=== PATIENT | male | born 1950 | race Caucasian/White ===

== ENCOUNTER 2017-06-04 05:51 | Day surgery (SDC) | payer MEDICARE ==
[~2017-06-04 05:51] MED LIST: AMOXIL400 MG/5 M PO; CEPHALEXIN500 MG PO; DUONEB IN; IPRATROPIU0.5 MG/3 M NEB; LASIX 40 MG40 MG/TAB PO; LEVAQUIN750 MG PO; MEDDOSEPAK PO; NEBULIZE1; NIACIN500 M2 PO; NORCO1 TA1 PO; PREDNISONE10 MG PO; PREDNISONE20 MG PO; PREDNISONE50 MG PO; PROAIR HFA IN; ROBITUSSIN AC10 ML PO; RYBIX ODT50 MG PO; SERTRALINE HCL50 MG PO; TRAMADOL HCL50 MG PO; TRAZODONE50 MG PO; VENTOLIN H108 MCG/AC IN; VENTOLIN HF1 IN; VITAMIN D1000 UNI1 PO; VITAMIN D3400 UNI2 PO
[2017-06-04 08:44] VITALS: BP 114/63
== END 2017-06-04 09:10 | disposition home or self-care (01) ==
LOC: ENDO 05:51
PROVIDERS: ATTEND Surgery
PROC: 0DBH8ZX Excision of Cecum, Via Natural or Artificial Opening Endoscopic, Diagnostic (ICD-10-PCS; principal; 2017-06-04)
PROC: 0DBN8ZX Excision of Sigmoid Colon, Via Natural or Artificial Opening Endoscopic, Diagnostic (ICD-10-PCS; 2017-06-04)
PROC: 0DBM8ZX Excision of Descending Colon, Via Natural or Artificial Opening Endoscopic, Diagnostic (ICD-10-PCS; 2017-06-04)
PROC: 0DBL8ZX Excision of Transverse Colon, Via Natural or Artificial Opening Endoscopic, Diagnostic (ICD-10-PCS; 2017-06-04)
DX: Z12.11 Encounter for screening for malignant neoplasm of colon (principal); D12.4 Benign neoplasm of descending colon; D12.3 Benign neoplasm of transverse colon; D12.5 Benign neoplasm of sigmoid colon; K62.1 Rectal polyp

== ENCOUNTER 2018-12-08 12:45 | Inpatient (IN) | payer MEDICARE ==
[~2018-12-08] VITALS: Ht 167.6 cm; Wt 119.0 kg
[2018-12-08 13:45] LABS: HEMATOCRIT 47.9 % (39.0-50.0); MEAN CELL VOLUME 92.3 fL CALC (80.0-100.0); MEAN CORPUSCULAR HGB 28.9 pG CALC (26.0-32.0); MEAN CORPUSCULAR HGB CONC 31.3 g/L CALC (32.0-36.0); NEUT# 6.93 thou/uL (1.82-7.42); RED BLOOD COUNT 5.19 mill/uL (4.70-6.10); RED CELL DISTRI WIDTH 14.8 % (11.5-15.5)
--- NOTE | 2018-12-08 13:45 | NUR ---
IN TO [id number] SELF TO Pt, P.O.C. DISCUSSED /c FULL UNDERSTANDING RETURNED.
[2018-12-08 13:47] LABS: ALKALINE PHOSPHATASE 91 u/l (38-126); ANION GAP 13 (6-22 (CALC)); BILIRUBIN, TOTAL 0.4 mg/dL (0.0-1.4); BUN 14 mg/dL (8-23); BUN/CREATININE RATIO 17 (12-20 (CALC)); CARBON DIOXIDE 27 mmol/l (22-30); CHLORIDE 102 mmol/l (95-108); CREATININE 0.8 mg/dL (0.7-1.3); GFR > 60 ML/MIN (>=60 (CALC)); GFR FOR AFR.AMER. > 60 ML/MIN (>=60 (CALC)); POTASSIUM 4.3 mmol/l (3.5-5.1); SGOT/AST 22 u/l (19-48); SODIUM 138 mmol/l (137-146); TOTAL PROTEIN 6.8 g/dL (6.3-8.2)
[2018-12-08 13:54] LABS: URINE BILIRUBIN - DIPSTICK NEGATIVE (NEGATIVE); URINE BLOOD DIPSTICK LARGE (NEGATIVE); URINE GLUCOSE - DIPSTICK 100 mg/dL (NEGATIVE); URINE KETONE NEGATIVE (NEGATIVE); URINE LEUK ESTERASE NEGATIVE (NEGATIVE); URINE NITRITE - DIPSTICK NEGATIVE (Negative); URINE PROTEIN - DIPSTICK >=300 mg/dL (NEG-TRACE); URINE SPECIFIC GRAVITY 1.025; URINE UROBILINOGEN - DIPSTICK 0.2 E.U./dL (0.2)
[2018-12-08 13:59] LABS: URINE COLOR RED
[2018-12-08 14:00] LABS: URINE RBC TNTC RBC/hpf (0-5)
--- NOTE | 2018-12-08 14:42 | NUR ---
BEDSIDE REPORT RECEIVED FROM GRADY COLE
--- NOTE | 2018-12-08 15:42 | NUR ---
PT RESTING ON STRETCHER AWAITING RESULTS.
--- NOTE | 2018-12-08 16:30 | NUR ---
PT INFOMRED OF NEED FOR CBI- INITAL ATTEMPT TO PLACE MOBLEY- UNSUCCESFUL.
--- NOTE | 2018-12-08 16:57 | NUR ---
[address] INSERT[address]- CBI INITIATED
--- NOTE | 2018-12-08 17:30 | NUR ---
2000 ML RED URINE OUT
--- NOTE | 2018-12-08 17:43 | NUR ---
REPORT CALLED TO BREANNE AGUIRRE LPN ACCEPTED PT
[2018-12-08] MEDS ORDERED: LOPID600 MG PO (17:57)
[2018-12-08] MEDS ORDERED: METFORMIN500 MG PO (17:57)
[2018-12-08] MEDS ORDERED: ASPIRIN81 MG PO (17:58)
--- NOTE | 2018-12-08 18:00 | NUR ---
2000 ML LESS RED URINE OUT
[2018-12-08 18:01] VITALS: BP 148/98
--- NOTE | 2018-12-08 18:01 | NUR ---
PT TRANSPORTED TO [facility] VIA STRETCHER ACCOMPIANED BY LIBERTY LOMAS. PT AMBULATED FROM STRETCHER TO BED W/ ASSISTANCE. VS DONE. PT A/O X4. PERRLA. SPEECH IS CLEAR. RESP LABORED. LUNG SOUNDS CLEAR/DIMINISHED. O2 @2L ON PT. BOWEL SOUNDS ACTIVE X4. STRONG RADIAL, WEAK PEDAL PULSES. #20 RAC SL. FLUSHED AND PT. PT HAS A #24 [place] DOUBLE LUMEN MOBLEY; CBI, DRAINING RED URINE W/ SOME CLOTS NOTED. SKIN IS INTACT. PT DENIES ANY PAIN OR NEEDS. POC DISCUSSED. SAFETY PRECAUTIONS IN PLACE. CALL LIGHT IN REACH. WILL CONTINUE TO MONITOR.
--- NOTE | 2018-12-08 18:11 | NUR ---
Admission Note Report Given to: TYSON MADRIGAL Transported by: Wheelchair X Stretcher Transported with: X Nurse Transporter X Patent IV O2 X Toe Trimmer TRANSPORTED TO [facility] [place] WITHOUT INCIDENT
[2018-12-08 19:00] VITALS: BP 111/65
--- NOTE | 2018-12-08 19:00 | NUR ---
REPORT RECIVED FROM TIMOTHY. PT RESTING IN BED CBI DRAINING BLOODY URINE WITH CLOTS TO GRAVITY. SAFETY PRECAUTIONS IN PLACE. WILL CONTINUE TO MONITOR.
--- NOTE | 2018-12-08 19:59 | NUR ---
PT RESTINGIN BED. PT HAS #24 [place] DOUBLE LUMEN MOBELY; CBI, DRAINING RED URINE WITH CLOTS, BAG ONE FINISHED SECOND BAG STARTED, MOBLEY DRAINED [address] ENGEL'S PHONE CALL TRANSFERED INTO PT ROOM TO GIVE R D INTERN ORDERS RBTO. SAFETY PRECAUTIONS IN PLACE. WILL CONTINUE TO MONITOR.
[2018-12-08 22:31] VITALS: BP 121/69
--- NOTE | 2018-12-08 23:59 | NUR ---
PT RESTING IN BED. BAG 5 FINISHED AND BAG 6 STARED, MOBLEY EMPTIED 3100 ML OUTPUT, DRAINING RED URINE WITH CLOTS. PT NOW NPO. IV DRESSING CHANGED. SAFETY PRECAUTIONS IN PLACE, WILL CONTINUE TO MONITOR.
[2018-12-09] VITALS (9 sets, daily range): BP systolic 91–133; BP diastolic 50–68
--- NOTE | 2018-12-09 04:42 | NUR ---
PT RESTING IN BED WITH EYES CLOSED. CBI DRAINING PINK URINE TO GRAVITY. RESPIRATIONS EVEN AND UNLABORED ON O2 AT 2L VIA NC. PT CONTINUE TO BE NPO SINCE MIDNIGHT. SAFETY PRECAUTIONS IN PLACE. WILL CONTINUE TO MONITOR.
[2018-12-09 05:56] LABS: HEMATOCRIT 45.2 % (39.0-50.0); HEMOGLOBIN 14.2 g/dl (14.0-18.0); IMMATURE GRANULOCYTES 0.9 % (0.0-5.0); MEAN CELL VOLUME 93.2 fL CALC (80.0-100.0); MEAN CORPUSCULAR HGB 29.3 pG CALC (26.0-32.0); MEAN CORPUSCULAR HGB CONC 31.4 g/L CALC (32.0-36.0); NEUT# 10.29 thou/uL (1.82-7.42); RED BLOOD COUNT 4.85 mill/uL (4.70-6.10); RED CELL DISTRI WIDTH 14.9 % (11.5-15.5)
[2018-12-09 06:07] LABS: ALBUMIN 3.4 g/dL (3.2-5.0); ALKALINE PHOSPHATASE 78 u/l (38-126); ANION GAP 13 (6-22 (CALC)); BILIRUBIN, TOTAL 0.4 mg/dL (0.0-1.4); BUN 14 mg/dL (8-23); BUN/CREATININE RATIO 15 (12-20 (CALC)); CARBON DIOXIDE 25 mmol/l (22-30); CHLORIDE 103 mmol/l (95-108); CREATININE 0.9 mg/dL (0.7-1.3); GFR > 60 ML/MIN (>=60 (CALC)); GFR FOR AFR.AMER. > 60 ML/MIN (>=60 (CALC)); POTASSIUM 4.5 mmol/l (3.5-5.1); SGOT/AST 21 u/l (19-48); SODIUM 137 mmol/l (137-146)
--- NOTE | 2018-12-09 08:10 | NUR ---
ASSESSMENT IS COMPLETED: IV SITE IS FREE FROM REDNESS OR EDEMA. HR IS REG,PULSES ARE STRONG X4, ABD IS SOFT WITH ACTIVE BS. BREATH SOUNDS ARE CLEAR BILATERALLY. MOBLEY INTACT HAS CLOTS AND CBI IS INFUSING. SCROTUM IS SWOLLEN. CALL AGUILAR WITHIN REACH.
--- NOTE | 2018-12-09 11:45 | NUR ---
SPOKEW ANGEL GONSALES RN FROM OR WILL GET ESTIMATED TIME FRAME OF INBETWEEN [id number]
--- NOTE | 2018-12-09 12:15 | NUR ---
PT IS RESTING IN BED , CONTINUES TO HAVE CRAMPS AND SPASMS , INQUIRED IF PT WANTED THE SUPPOSITORY. DECLINED. CONTINUE TO OSEBRVE AND MONITOR,
--- NOTE | 2018-12-09 15:15 | NUR ---
PT HAS BEEN RESTING IN BED WITH NO DISTRESS NOTED. IV SITE IS FREE FROM REDNESS OR EDMEA. MOBLEY DRAINING. SOME BLOODY URINE WITH CLOTS. CONTINUE TO OSBERVE AND MONITOR.
--- NOTE | 2018-12-09 15:15 | NUR ---
PT TRANSPORTED TO OR VIA STRETCHER ACCOMPANIED BY STAFF. PT STARTED TO WHEEZE WHEN GETTING OUT OF BED AND ONTO THE STRETCHER . IV FLUIDS AND CBI BAGS WITH PT.
--- NOTE | 2018-12-09 15:20 | NUR ---
CBI LEFT IN THE BAG WAS 1000 APPROX, SENT TO OR WITH A FULL BAG AND THE PARTIAL.
--- NOTE | 2018-12-09 19:35 | NUR ---
PT RETURNED TO FLOOR VIA STRETCHER FROM OR ACCOMPANIED BY OR STAFF, ALERT AND ORIENTED. PT TRANSFERED FROM STRETCHER TO BED. SITTING ON SIDE OF BED SOB ON 02 @ 2L VIA NC, AGITATED WANTING TO GO OUTSIDE FOR A CIGARETT, PT NOT WANTING TO GET UP IN BED UNTIL HE HAS A CIGARETT. PT SON CAME IN AND TALKED TO HIM, PT AGREED TO GET FURTHER INTO BED. VS OBTAINED. CBI IN PROGRESS, #[address] MOBLEY W/30CC BALLOON, DRAINING TO GRAVITY, PINK URINE. #20 LAC INFUSSING LR @ 100 ML/HR. SAFETY PRECAUTIONS IN PLACE, CALL LIGHT WITHIN REACH, WILL CONTINUE TO MONITOR.
--- NOTE | 2018-12-10 00:59 | NUR ---
PT RESTING IN BED.CBI CONTINUES, MOBLEY DRAINING TO GRAVITY, URINE PINK/CLEAR. CALL LIGHT WITHIN REACH. WILL CONTINUE TO MONITOR.
--- NOTE | 2018-12-10 02:59 | NUR ---
PT COUGHING AND SOB. ADMINISTERED PRN INHALER. PT ASKING FOR A BREATHING TREATMENT NOTIFIED RT. WILL CONTINUE TO MONINTOR.
[2018-12-10 04:00] VITALS: BP 101/52
[2018-12-10 05:04] LABS: HEMATOCRIT 41.9 % (39.0-50.0); HEMOGLOBIN 13.3 g/dl (14.0-18.0); IMMATURE GRANULOCYTES 0.7 % (0.0-5.0); MEAN CELL VOLUME 93.3 fL CALC (80.0-100.0); MEAN CORPUSCULAR HGB 29.6 pG CALC (26.0-32.0); MEAN CORPUSCULAR HGB CONC 31.7 g/L CALC (32.0-36.0); NEUT# 9.09 thou/uL (1.82-7.42); RED BLOOD COUNT 4.49 mill/uL (4.70-6.10)
[2018-12-10 05:12] LABS: ALBUMIN 3.1 g/dL (3.2-5.0); ALKALINE PHOSPHATASE 68 u/l (38-126); ANION GAP 13 (6-22 (CALC)); BILIRUBIN, TOTAL 0.5 mg/dL (0.0-1.4); BUN 15 mg/dL (8-23); BUN/CREATININE RATIO 14 (12-20 (CALC)); CARBON DIOXIDE 25 mmol/l (22-30); CHLORIDE 101 mmol/l (95-108); CREATININE 1.1 mg/dL (0.7-1.3); GFR > 60 ML/MIN (>=60 (CALC)); GFR FOR AFR.AMER. > 60 ML/MIN (>=60 (CALC)); MAGNESIUM 1.9 mg/dL (1.6-2.3); POTASSIUM 4.2 mmol/l (3.5-5.1); SODIUM 135 mmol/l (137-146); TOTAL PROTEIN 5.6 g/dL (6.3-8.2)
[2018-12-10 05:24] LABS: SGOT/AST 58 u/l (19-48)
[2018-12-10 08:00] VITALS: BP 110/59
--- NOTE | 2018-12-10 08:00 | NUR ---
ASSESSMENT IS COMPLETED: IV SITE IS FREE FROM REDNESS OR EDEMA. HR IS REG, PULSES ARE STRONG X4, ABD IS SOFT WITH ACTIVE BS. MOBLEY DRAINING PINK TO CLEAR URINE CBI IS CONTINUING. PT TOLERATING WELL. BREATH SOUNDS ARE CLEAR WITH AUDIBLE WHEEZING WHEN HE EXERTS HIMSELF. TAPE WAS LEAKING AT MOBLEY SITE THEN REINFORCED. CONTINUE TO OSEBRVE AND MONITOR.
--- NOTE | 2018-12-10 11:15 | NUR ---
IN TO VISIT WITH PT. LETTY IV SITE WITH ROUTINE CARE.
[2018-12-10 11:16] VITALS: BP 115/69
--- NOTE | 2018-12-10 12:40 | NUR ---
PT IS RELAXING IN BED WENT FOR A WALK IN THE ROOM TO THE BATHROOM, HAD A BM. TOLERATED WALK WELL. IV SITE IS REDUCED TO [place]. CONTINEU TO OSEBRVE AND MONITOR.
--- NOTE | 2018-12-10 15:00 | NUR ---
PHARMACY STUDENTS CAME TO TALK WITH THE PT RE: MEDICATIONS , PT HOLLARED AT THE STUDENTS AND TOLD THEM TO GET OUT. "THEY DIDN'T KNOW WHAT THEY WERE TALKING ABOUT. WHEN THE STUDENT SPOKE UP THE PATIENT HOLLARD EVEN LOUDER AND TOLD THEM TO LEAVE". THE STUDENTS CAME UP AND INQUIRED ABOUT THE ISSUE. EXPLAINED THAT THE PT WANTS TO SMOKE, CONTINUE TO OBSERVE AND MONITOR.
[2018-12-10 15:18] VITALS: BP 143/82
--- NOTE | 2018-12-10 15:52 | NUR ---
PT INQUIRING ABOUT WHEN DR. ENGEL WILL BE HERE , UNKNOWN WHAT TIME.
--- NOTE | 2018-12-10 16:20 | NUR ---
PT IS RELAXING IN BED WITH MO DISTRESS NOTED. CONTINUE TO OBSERVE AND MONITOR.
--- NOTE | 2018-12-10 19:35 | NUR ---
REPORT RECIVED FROM KAITLIN GARCIA. PT RESTING IN BED, CBI IN PROGRESS, MOBLEY EMPTIED AT THIS TIME AND NEW BAG STARTED. SAFETY PRECAUTIONS IN PLACE, WILL CONTINUE TO MONITOR.
[2018-12-10 20:15] VITALS: BP 138/79
--- NOTE | 2018-12-10 20:15 | NUR ---
PT RESTING IN BED, ALERT AND ORIENTED. SOB ON O2 @ 2L VIA NC, NON PRODUCTIVE COUGH NOTED, LUNGS SOUND DIMINISHED. PEDAL PULSES WEAK. CBI, #[address] MOBLEY DRAINING TO GRAVITY, CLEAR/PINK URINE. #20 LAC, PATENT, SITE APPEARS HEALTHY. PT REPORTS PAIN OF A 8 OUT OF 10 ON PAIN SCALE, MEDICATED PER EMAR ORDERS. CALL LIGHT WITH IN REACH, WILL CONITNUE TO MONITOR.
--- NOTE | 2018-12-11 00:01 | NUR ---
PT PROVIDED WITH A SANDWICH PER REQUEST. NO SIGNS OR SYMPTOMS OF DISTRESS. PT SITTING UP IN BED, CALL LIGHT WITHIN REACH, TOP TWO BED RAILS UP, WILL CONTINUE TO MONITOR.
[2018-12-11 00:37] VITALS: BP 123/68
[2018-12-11 04:00] VITALS: BP 124/70
--- NOTE | 2018-12-11 04:34 | NUR ---
PT RESTING IN BED WITH EYES CLOSED, EASILY AROUSED. NO SIGNS OR SYMPTOMS OF DISTRESS. CBI IN PROGRESS, MOBLEY DRAINING TO GRAVITY, PINK/YELLOW URINE NOTED. SAFETY PRECAUTIONS IN PLACE WILL CONTINUE TO MONITOR.
[2018-12-11 05:10] LABS: HEMATOCRIT 39.1 % (39.0-50.0); HEMOGLOBIN 12.3 g/dl (14.0-18.0); IMMATURE GRANULOCYTES 0.9 % (0.0-5.0); MEAN CELL VOLUME 93.1 fL CALC (80.0-100.0); MEAN CORPUSCULAR HGB 29.3 pG CALC (26.0-32.0); MEAN CORPUSCULAR HGB CONC 31.5 g/L CALC (32.0-36.0); NEUT# 9.44 thou/uL (1.82-7.42); RED BLOOD COUNT 4.2 mill/uL (4.70-6.10); RED CELL DISTRI WIDTH 15.1 % (11.5-15.5)
[2018-12-11 05:35] LABS: ALBUMIN 3.1 g/dL (3.2-5.0); ALKALINE PHOSPHATASE 66 u/l (38-126); ANION GAP 12 (6-22 (CALC)); BILIRUBIN, TOTAL 0.4 mg/dL (0.0-1.4); BUN 14 mg/dL (8-23); BUN/CREATININE RATIO 13 (12-20 (CALC)); CARBON DIOXIDE 24 mmol/l (22-30); CHLORIDE 103 mmol/l (95-108); GFR > 60 ML/MIN (>=60 (CALC)); GFR FOR AFR.AMER. > 60 ML/MIN (>=60 (CALC)); MAGNESIUM 2.2 mg/dL (1.6-2.3); POTASSIUM 4.2 mmol/l (3.5-5.1); SGOT/AST 51 u/l (19-48); SODIUM 135 mmol/l (137-146); TOTAL PROTEIN 5.6 g/dL (6.3-8.2)
--- NOTE | 2018-12-11 07:15 | NUR ---
REPORT RECEIVED FROM MATERIAL STRESS TESTER; PT SITTING UP IN BED WATCHING TV; CBI STOPPED PER ORDERS; EMPTIED 2400CC CLEAR, YELLOW URINE FROM MOBLEY; WILL CONTINUE TO MONITOR.
[2018-12-11 07:33] VITALS: BP 102/52
--- NOTE | 2018-12-11 07:40 | NUR ---
ASSESSMENT COMPLETED; PT SITTING UP IN BED EATING BREAKFAST; RESP LABORED ON 02@2L NC; IV INTACT, FLUSHED WELL; MOBLEY [address] CATH, INTACT DRAINING CLEAR, YELLOW URINE TO GRAVITY; LEG STRAP SECURE; STATED "I WANT CATH OUT AT 0900 ALONG WITH MY PAIN MEDS" LAST BM 12/10; CALL AGUILAR IN REACH; SAFETY PRECAUTION REINFORCE; WILL CONTINUE TO MONITOR.
--- NOTE | 2018-12-11 10:40 | NUR ---
CATH REMOVED PT TOLERATED WELL; EMPTIED 400CC CLEAR, SOFIA URINE; MIN BLEEDING NOTED FROM PENIS AFTER REMOVAL OF 3WAY CATH; ASSISTED PT TO A SITTING POSITION; PT EDUCATED TO CALL FOR ASSISTANCE; URINAL AND CALL AGUILAR AT BEDSIDE; PT ASK FOR COFFEE, CREAMER AND SUGAR; WILL CONTNUE TO MONITOR.
--- NOTE | 2018-12-11 10:50 | NUR ---
COFFEE AND CREAMER PROVIDED
--- NOTE | 2018-12-11 11:31 | NUR ---
DR DOMINGO AT BEDSIDE TO DISCUSS POC
[2018-12-11] MEDS ORDERED: DOXYCYC MONO100 M2 PO (12:12)
--- NOTE | 2018-12-11 12:49 | NUR ---
DC INSTRUCTIONS GIVEN TO PT, FOLLOW UP WITH DR ENGEL 01/01 @0900; VERBALIZE UNDERSTANDING; IV REMOVE, CATH INTACT;
--- NOTE | 2018-12-11 12:50 | NUR ---
Discharge instructions given. Patient verbalizes understanding of same. Discharged in stable condition via Wheelchair to Home with family. All belongings sent with pt.
== END 2018-12-11 12:48 | disposition home or self-care (01) | DRG 663 ==
LOC: ED 12:45 → ED-I 15:02 → ED 16:23 → MS2 16:24
PROVIDERS: Emergency Medicine; ADMIT Internal Medicine Nephrology; ATTEND Internal Medicine Nephrology
PROC: 0T9B70Z Drainage of Bladder with Drainage Device, Via Natural or Artificial Opening (ICD-10-PCS; 2018-12-08)
PROC: 0TBB8ZX Excision of Bladder, Via Natural or Artificial Opening Endoscopic, Diagnostic (ICD-10-PCS; principal; 2018-12-09)
PROC: 0W3R8ZZ Control Bleeding in Genitourinary Tract, Via Natural or Artificial Opening Endoscopic (ICD-10-PCS; 2018-12-09)
PROC: 0VB08ZZ Excision of Prostate, Via Natural or Artificial Opening Endoscopic (ICD-10-PCS; 2018-12-09)
PROC: 0TCB8ZZ Extirpation of Matter from Bladder, Via Natural or Artificial Opening Endoscopic (ICD-10-PCS; 2018-12-09)
DX: C67.6 Malignant neoplasm of ureteric orifice (principal); Z68.41 Body mass index [BMI] 40.0-44.9, adult; N13.8 Other obstructive and reflux uropathy; J44.1 Chronic obstructive pulmonary disease with (acute) exacerbation; N40.1 Benign prostatic hyperplasia with lower urinary tract symptoms; N42.1 Congestion and hemorrhage of prostate; I10 Essential (primary) hypertension; E11.9 Type 2 diabetes mellitus without complications; E78.5 Hyperlipidemia, unspecified; F41.1 Generalized anxiety disorder; F32.9 Major depressive disorder, single episode, unspecified; F17.210 Nicotine dependence, cigarettes, uncomplicated; E66.01 Morbid (severe) obesity due to excess calories; I25.10 Atherosclerotic heart disease of native coronary artery without angina pectoris; Z99.81 Dependence on supplemental oxygen; Z79.82 Long term (current) use of aspirin
CPT/HCPCS: C1769; G0378; J1956; J2710; Q9967

== ENCOUNTER 2020-03-15 10:50 | Inpatient (IN) | payer MEDICARE ==
[~2020-03-15] VITALS: Ht 172.7 cm; Wt 119.4 kg
[~2020-03-15 10:50] MED LIST changes: +ASPIRIN81 MG PO; +DOXYCYC MONO100 M2 PO; +LOPID600 MG PO; +METFORMIN500 M2 PO
--- NOTE | 2020-03-15 11:11 | NUR ---
PT CHANGED TO GOWN. POSITIONED FOR COMFORT. HOB ELEVATED. PT REPORTS BILAT LEG PAIN FROM STATIS CELLULITIS. SENT FROM DOCTORS OFFICE FOR TESTING AND ADMISSION
[2020-03-15 11:38] LABS: HEMATOCRIT 46.2 % (39.0-50.0); IMMATURE GRANULOCYTES 1.2 % (0.0-5.0); MEAN CELL VOLUME 92.2 fL CALC (80.0-100.0); MEAN CORPUSCULAR HGB 29.9 pG CALC (26.0-32.0); MEAN CORPUSCULAR HGB CONC 32.5 g/dL CAL (32.0-36.0); NEUT# 8.82 thou/uL (1.82-7.42); RED BLOOD COUNT 5.01 mill/uL (4.70-6.10); RED CELL DISTRI WIDTH 14.6 % (11.5-15.5)
[2020-03-15 11:46] LABS: ALBUMIN 4.1 g/dL (3.2-5.0); ALKALINE PHOSPHATASE 111 u/l (38-126); ANION GAP 12 (6-22 (CALC)); BILIRUBIN, TOTAL 0.3 mg/dL (0.0-1.4); BUN 16 mg/dL (8-23); BUN/CREATININE RATIO 18 (12-20 (CALC)); C-REACTIVE PROTEIN 2.1 mg/dL (0-0.9); CARBON DIOXIDE 26 mmol/l (22-30); CHLORIDE 104 mmol/l (95-108); CREATININE 0.9 mg/dL (0.7-1.3); GFR > 60 ML/MIN (>=60 (CALC)); GFR FOR AFR.AMER. > 60 ML/MIN (>=60 (CALC)); POTASSIUM 4.3 mmol/l (3.5-5.1); SGOT/AST 23 u/l (19-48); SODIUM 137 mmol/l (137-146); TOTAL PROTEIN 7.1 g/dL (6.3-8.2)
[2020-03-15 11:50] LABS: ACT PARTIAL THROMBO TIME 28.5 SECONDS (20.0-32.5); INTERNATIONAL NORMALIZED RATIO 0.9 RATIO (0.7-1.3); PROTHROMBIN TIME 9.3 SECONDS (9.0-12.5)
--- NOTE | 2020-03-15 12:42 | NUR ---
LEFT PEDAL PULSE PRESENT WITH DOPPLER. 2 SEC CAP REFILL LEFT TOES
--- NOTE | 2020-03-15 14:30 | NUR ---
PT RESTING ON STRETCHER WAITING ADMISSION ORDERS
--- NOTE | 2020-03-15 15:00 | NUR ---
MED SURG UNABLE TO TAKE REPORT AT THIS TIME
--- NOTE | 2020-03-15 15:37 | NUR ---
MED SURG UNABLE TO TAKE REPORT AT THIS TIME
--- NOTE | 2020-03-15 15:43 | NUR ---
REPORT CALLED TO NOAH KOENIGSUPERVISOR CLEANING AND ANNEALING
--- NOTE | 2020-03-15 15:50 | NUR ---
PT TRANSPORT VIA WHEELCHAIR TO MED SURG
[2020-03-15 15:55] VITALS: BP 139/78
--- NOTE | 2020-03-15 15:55 | NUR ---
PT ARRIVED TO MED SURG ROOM 278 IN STABLE CONDITION VIA WHEEL CHAIR. PT AMBULATED FROM WHEEL CHAIR TO BED WITH STEADY GAIT,FALL RISK BAND APPLIED. PT IS A/O X3 . ASSESSMENT AND VITALS COMPLETED AT THIS TIME. BP 139/78, HR 80, O2 99% ON 2L NC.PT STATES THAT HE IS O2 DEPENDENT, PT STATES HE GETS 2L NC. RESPIRATIONS ARE EVEN AND UNLABORED WITH NO SIGNS OF DISTRESS. LUNG SOUNDS ARE CLEAR. HEART RHYTHM IS NORMAL. BOWEL SOUNDS ARE ACTIVE IN ALL QUADRANTS WITH NO TENDERNESS. LAST REPORTED BM 03/15/20. #20G RAC FLUSHED AT THIS TIME, SITE APPEARS HEALTHY AND PATENT. RADIAL AND RIGHT PEDAL PULSE ARE STRONG WITH NORMAL CAPILLARY REFILL. LEFT PEDAL PULSE UNABLE TO PALPATE DUE TO DRESSING. DRESSING IS CDI. SKIN IS WARM AND DRY. PT PRESENTS WITH MULTIPLE SMALL SCABS SCATTERED ON ARMS. PT PRESENTED TO ER FROM WOUND CENTER DUE TO CELLULITIS OF LLE. PT COMPLAINS OF 7/10 PAIN IN LOWER EXTREMITIES. EDUCATED PT ON NOT HAVING PAIN MEDICATION ORDERED AT THIS TIME. PT VERBALIZED UNDERSTANDING. DR. BANKS NOTIFIED OF PAIN MEDICATION. PT REPORTED ALLERGIES TO IODINE, ALLERGY BAND APPLIED. PT DENIES ANY OTHER PAIN OR NEEDS AT THIS TIME.ALL SAFTEY PRECAUTIONS IN PLACE, PT ORIENTED TO CALL SYSTEM AND ROOM. WILL COTNINUE TO MONITOR.
--- NOTE | 2020-03-15 18:14 | NUR ---
ORDERED MORPHINE 2 MG IVP Q4 PRN. AWAITNG VERIFICATION FROM PHARMACY
[2020-03-15 19:06] VITALS: BP 107/61
--- NOTE | 2020-03-15 19:33 | NUR ---
PT COMPLAINS OF 8/10 PAIN IN LOWER EXTREMITIES. MORPHINE ADMINISTERED AT THIS TIME. RESPIRATIONS ARE EVEN AND UNLABORED. PT DENEIS ANY ADDITIONAL PAINS OR NEEDS. ALL SAFTEY PRECAUTIONS IN PLACE WITH CALL LIGHT IN REACH. WILL CONTINUE TO MONITOR
--- NOTE | 2020-03-15 20:50 | NUR ---
pt. sitting up in bed watching tv; no distress noted; denies needs/pain. dressing is cdi to lle and pt. reports wound care dressed it today and it is done daily and does not need to be done today; unable to assess wounds at this time. sleeve also noted to rle; cdi. reports pain is trending down post morphine and denies further interventions needed at this time. educated on frequencies of pain med and when next dose can be given if needed; verbalizes understanding. encouraged to call for any needs. call light is in reach.
--- NOTE | 2020-03-15 23:21 | NUR ---
PT. MEDICATED FOR LLE PAIN WITH ORDERED PRN MORPHINE; WILL REASSESS. DENIES FURTHER NEEDS.
--- NOTE | 2020-03-16 03:00 | NUR ---
PT. UP ST THE NURSES STATION WITH NO DISTRESS NOTED. TALKING WITH STAFF
--- NOTE | 2020-03-16 03:31 | NUR ---
PT. C/O BLE PAIN 05/25 AND MEDICATED WITH ORDERED PRN MORPHINE; WILL REASSESS.
[2020-03-16 04:15] VITALS: BP 120/60
--- NOTE | 2020-03-16 05:05 | NUR ---
SLEEVE OFF OF RLE REMOVED AND SMALL FOAM DRESSING NOTED TO POSTERIOR RIGHT LOWER LEG, PULLED DOWN DRESSING AND PHOTO OBTAINED FOR CHART AND REAPPLIED DRESSING AND SLEEVE REPLACED.
[2020-03-16 05:38] LABS: HEMATOCRIT 42.4 % (39.0-50.0); HEMOGLOBIN 13.4 g/dl (14.0-18.0); IMMATURE GRANULOCYTES 1.3 % (0.0-5.0); MEAN CORPUSCULAR HGB 29.7 pG CALC (26.0-32.0); MEAN CORPUSCULAR HGB CONC 31.6 g/dL CAL (32.0-36.0); NEUT# 8.8 thou/uL (1.82-7.42); RED BLOOD COUNT 4.51 mill/uL (4.70-6.10); RED CELL DISTRI WIDTH 14.6 % (11.5-15.5)
[2020-03-16 06:09] LABS: ALBUMIN 3.5 g/dL (3.2-5.0); ALKALINE PHOSPHATASE 82 u/l (38-126); ANION GAP 10 (6-22 (CALC)); BILIRUBIN, TOTAL 0.3 mg/dL (0.0-1.4); BUN 17 mg/dL (8-23); BUN/CREATININE RATIO 19 (12-20 (CALC)); CARBON DIOXIDE 27 mmol/l (22-30); CHLORIDE 102 mmol/l (95-108); CREATININE 0.9 mg/dL (0.7-1.3); GFR > 60 ML/MIN (>=60 (CALC)); GFR FOR AFR.AMER. > 60 ML/MIN (>=60 (CALC)); POTASSIUM 4.4 mmol/l (3.5-5.1); SGOT/AST 21 u/l (19-48); SODIUM 134 mmol/l (137-146); TOTAL PROTEIN 6.3 g/dL (6.3-8.2)
[2020-03-16 08:00] VITALS: BP 134/63
--- NOTE | 2020-03-16 09:00 | NUR ---
PT AWAKE, ALERT, ORIENTED X 3. PT ASKED FOR PAIN MED WHILE NURSE BUSY ON [facility], NOT PLEASED TO HAVE HAD TO WAIT FOR PAIN MED. LUNGS CLEAR, SLIGHTLY DIMINISHED, 2 LPM NC PRN. BILATERAL LEGS COVERED WITH WRAP, ANTICIPATE WOUND CARE CONSULT FOR ORDERS ON THEIR CARE.
--- NOTE | 2020-03-16 13:00 | NUR ---
PT SEEN BY DR BANKS TODAY. LEFT LEG DRESSING WAS REMOVED AND PHOTO TAKEN. PT WAITS FOR DR PÉREZ FROM WOUND CARE TO REWRAP WOUND. PT STATES MORPHINE VERY EFFECTIVE FOR PAIN RELIEF.
[2020-03-16] MEDS ORDERED: ESCITALOPRAM OX10 MG PO (13:38)
[2020-03-16] MEDS ORDERED: ALBUTEROL SUL0.083 % NEB (13:40)
[2020-03-16] MEDS ORDERED: CLOPIDOGREL75 MG PO (14:13)
[2020-03-16 15:30] VITALS: BP 129/76
--- NOTE | 2020-03-16 16:15 | NUR ---
PT MEDICATED WITH MORPHINE REQUESTED, FINDS GOOD RELIEF. PT SEEN AMBULATING IN [place]. WHEN BACK IN BED, TWO PILLOWS PLACED UNDER LEFT LEG PER SWELLING.
[2020-03-16 19:00] VITALS: BP 120/59
--- NOTE | 2020-03-16 19:28 | NUR ---
ASSESSMENT COMPLETED. IV SITE PATENT AND SL, FLUSHED AND MEDICATED WITH ORDERED PRN MORPHINE FOR BLE PAIN 05/25; WILL REASSESS. UPDATED ON POC AND VERBALIZES UNDERSTANDING.ENCOURAGED TO CALL FOR ANY NEEDS. CALL LIGHT IS IN REACH.
--- NOTE | 2020-03-16 20:45 | NUR ---
UNIBOOT AND CALAMINE LOTION UNAVAILABLE. DRESSINGS APPLIED PER ORDER TO BLE.
--- NOTE | 2020-03-16 23:30 | NUR ---
PT. C/O RESTLESSNESS AND PAIN AND MEDICATED WITH ORDERED PRN MORPHINE AND RESTORIL; WILL REASSESS.
--- NOTE | 2020-03-17 02:20 | NUR ---
UNABOOT NOW AVAIALABLE AND APPLIED TO LLE PER ORDER.
--- NOTE | 2020-03-17 03:30 | NUR ---
PT. MEDICATED FOR BLE PAIN 04/24 WITH ORDERED PRN MORPHINE; WILL REASSESS. COFFEE PROVIDED. ENCOURAGED TO CALL FOR ANY NEEDS.
[2020-03-17 05:00] VITALS: BP 108/54
[2020-03-17 05:01] LABS: HEMATOCRIT 41.4 % (39.0-50.0); HEMOGLOBIN 12.8 g/dl (14.0-18.0); MEAN CELL VOLUME 94.5 fL CALC (80.0-100.0); MEAN CORPUSCULAR HGB 29.2 pG CALC (26.0-32.0); MEAN CORPUSCULAR HGB CONC 30.9 g/dL CAL (32.0-36.0); RED BLOOD COUNT 4.38 mill/uL (4.70-6.10); RED CELL DISTRI WIDTH 14.5 % (11.5-15.5)
[2020-03-17 05:35] LABS: ANION GAP 9 (6-22 (CALC)); BUN 17 mg/dL (8-23); BUN/CREATININE RATIO 18 (12-20 (CALC)); CARBON DIOXIDE 29 mmol/l (22-30); CHLORIDE 99 mmol/l (95-108); CREATININE 0.9 mg/dL (0.7-1.3); GFR > 60 ML/MIN (>=60 (CALC)); GFR FOR AFR.AMER. > 60 ML/MIN (>=60 (CALC)); POTASSIUM 4.5 mmol/l (3.5-5.1); SODIUM 132 mmol/l (137-146)
[2020-03-17 08:00] VITALS: BP 118/72
--- NOTE | 2020-03-17 10:50 | NUR ---
PT AWAKE, ALERT, AMBULATORY IN ROOM. BILATERAL LEGS WITH ROSIE WRAP DRESSINGS COVERING, NO SIGNIFICANT DRAINAGE. PT MEDICATED FOR PAIN EARLY IN SHIFT, STATES THAT IT TAKES PAIN LEVEL WAY DOWN.
[2020-03-17] MEDS ORDERED: AMOX/K CLAV875 M1 PO ×2 (12:56)
[2020-03-17] MEDS ORDERED: LORTAB5 PO (12:57)
[2020-03-17] MEDS ORDERED: CIPROFLOXACN500 MG PO (13:36)
--- NOTE | 2020-03-17 14:08 | NUR ---
PT SEEN BY DR BANKS THIS AFTERNOON, HAS BEEN DISCHARGED TO HOME. IV WAS REMOVED, DISCHARGE INSTRUCTIONS REVIEWED, PT VERBALIZES UNDERSTANDING. PT WAS TAKEN TO VEHICLE BY WHEELCHAIR, THANKS STAFF HE LEAVES.
== END 2020-03-17 14:40 | disposition home health service (06) | DRG 603 ==
LOC: ED 10:50 → ED-I 12:20 → ED 12:47 → ED-I 12:48 → MS2 12:48
PROVIDERS: Nurse Practitioner Family; ADMIT Internal Medicine; ATTEND Internal Medicine
DX: L03.116 Cellulitis of left lower limb (principal); J96.10 Chronic respiratory failure, unspecified whether with hypoxia or hypercapnia; Z68.41 Body mass index [BMI] 40.0-44.9, adult; I87.312 Chronic venous hypertension (idiopathic) with ulcer of left lower extremity; L97.929 Non-pressure chronic ulcer of unspecified part of left lower leg with unspecified severity; I87.1 Compression of vein; L97.222 Non-pressure chronic ulcer of left calf with fat layer exposed; E11.9 Type 2 diabetes mellitus without complications; I25.10 Atherosclerotic heart disease of native coronary artery without angina pectoris; J44.9 Chronic obstructive pulmonary disease, unspecified; I50.9 Heart failure, unspecified; I89.0 Lymphedema, not elsewhere classified; E66.9 Obesity, unspecified; F17.210 Nicotine dependence, cigarettes, uncomplicated; B96.89 Other specified bacterial agents as the cause of diseases classified elsewhere; Z95.820 Peripheral vascular angioplasty status with implants and grafts; Z79.84 Long term (current) use of oral hypoglycemic drugs; Z99.81 Dependence on supplemental oxygen; Z11.59 Encounter for screening for other viral diseases; E11.51 Type 2 diabetes mellitus with diabetic peripheral angiopathy without gangrene; A49.9 Bacterial infection, unspecified
CPT/HCPCS: A6198; A6210; A6454; A6456; G0378; J0692; J1650

== ENCOUNTER → 2021-03-20 | Day surgery (SDC) | payer MEDICARE ==
[~2021-03-20] MED LIST changes: +ALBUTEROL SUL0.083 % NEB; +AMOX/K CLAV875 M1 PO; +CIPROFLOXACN500 MG PO; +CLOPIDOGREL75 MG PO; +ESCITALOPRAM OX10 MG PO; +LORTAB5 PO
[2021-03-20 08:45] VITALS: BP 124/69
== END | disposition home or self-care (01) ==
LOC: ENDO 07:02 → ORM 11:20
PROVIDERS: ATTEND Surgery
PROC: 0DBM8ZX Excision of Descending Colon, Via Natural or Artificial Opening Endoscopic, Diagnostic (ICD-10-PCS; principal; 2021-03-20)
DX: Z12.11 Encounter for screening for malignant neoplasm of colon (principal); D12.4 Benign neoplasm of descending colon; E11.9 Type 2 diabetes mellitus without complications; J43.9 Emphysema, unspecified; F17.210 Nicotine dependence, cigarettes, uncomplicated; Z79.84 Long term (current) use of oral hypoglycemic drugs; Z86.010 Personal history of colon polyps

== ENCOUNTER 2022-06-22 18:18 | Observation (INO) | payer MEDICARE ==
[~2022-06-22] VITALS: Ht 172.7 cm; Wt 113.6 kg
[2022-06-22] VITALS (11 sets, daily range): BP systolic 92–163; BP diastolic 50–76
[2022-06-22 18:48] LABS: HEMATOCRIT 50.2 % (39.0-50.0); HEMOGLOBIN 16.1 g/dl (14.0-18.0); MEAN CELL VOLUME 95.1 fL CALC (80.0-100.0); MEAN CORPUSCULAR HGB 30.5 pG CALC (26.0-32.0); MEAN CORPUSCULAR HGB CONC 32.1 g/dL CAL (32.0-36.0); NEUT# 2.96 thou/uL (1.82-7.42); RED BLOOD COUNT 5.28 mill/uL (4.70-6.10); RED CELL DISTRI WIDTH 14.7 % (11.5-15.5)
[2022-06-22 19:03] LABS: ALKALINE PHOSPHATASE 78 u/l (38-126); ANION GAP 14 (6-22 (CALC)); BILIRUBIN, TOTAL 0.3 mg/dL (0.0-1.4); BUN 21 mg/dL (8-23); BUN/CREATININE RATIO 20 (12-20 (CALC)); CARBON DIOXIDE 28 mmol/l (22-30); CHLORIDE 95 mmol/l (95-108); CREATININE 1.1 mg/dL (0.7-1.3); D-DIMER 1.09 mg/L (0.19-0.60); GFR FOR AFR.AMER. > 60 ML/MIN (>=60 (CALC)); GFR OTHER RACES > 60 ML/MIN (>=60 (CALC)); POTASSIUM 4.4 mmol/l (3.5-5.1); SGOT/AST 76 u/l (19-48); SODIUM 133 mmol/l (137-146); TOTAL PROTEIN 6.9 g/dL (6.3-8.2)
[2022-06-22 19:07] LABS: PROTHROMBIN TIME 10.4 SECONDS (9.0-12.5)
[2022-06-22 19:15] LABS: MYOGLOBIN 254 ng/mL (0 - 121)
[2022-06-22 20:32] LABS: URINE BILIRUBIN - DIPSTICK NEGATIVE (NEGATIVE); URINE BLOOD DIPSTICK SMALL (NEGATIVE); URINE COLOR YELLOW; URINE GLUCOSE - DIPSTICK NEGATIVE (NEGATIVE); URINE KETONE 15 mg/dL (NEGATIVE); URINE LEUK ESTERASE NEGATIVE (NEGATIVE); URINE PROTEIN - DIPSTICK 100 mg/dL (NEG-TRACE); URINE SPECIFIC GRAVITY >=1.030; URINE UROBILINOGEN - DIPSTICK 0.2 E.U./dL (0.2)
[2022-06-22 20:34] LABS: URINE NITRITE - DIPSTICK NEGATIVE (Negative)
[2022-06-22 20:40] LABS: URINE WBC 0-2 WBC/hpf (0-5)
[2022-06-22 20:41] LABS: URINE SQUAMOUS EPITHELIAL CELL FEW EPI/hpf (0-FEW)
--- NOTE | 2022-06-22 20:45 | NUR ---
LT AC PIV INILTRATED AND D/C'D; RT AC PIV UNABLE TO FLUSH, D/C'D. MULTIPLE ATTEMTS MADE FOR IV ACCESS WERE UNSUCCESSFUL; PT REFUSING ANY FURTHER ATTEMPTS; AWARE.
--- NOTE | 2022-06-22 20:46 | NUR ---
D/T IV ACCESS ISSUES, CTA ON HOLD PER
--- NOTE | 2022-06-22 22:30 | NUR ---
Report received from PERNELL Vargas.
--- NOTE | 2022-06-22 22:34 | NUR ---
PT ADMITTED TO RM 272, REPORT CALLED LIBERTY TABOR
--- NOTE | 2022-06-22 22:50 | NUR ---
72 y/o male patient received from ER via stretcher. O/A to unit, pt awake, alert and oriented. Noted to be very SOB at rest and increased OE. Pt noted to have a harsh, moist sounding cough. States same is productive but swallows same. O2 on at 4L NC. VSS. Pt oriented to room, environment and call system. Plan of care reviewed. Bed alarm engaged. Will monitor.
--- NOTE | 2022-06-22 23:54 | NUR ---
Pt refuses to sign don't fall, call agreement. States he'll be getting up to go to the bathroom. Bed alarm engaged and call luu within reach. Will monitor.0
[2022-06-23 04:06] VITALS: BP 130/66
--- NOTE | 2022-06-23 06:28 | NUR ---
Dr. Desai made aware that CTA not done last night due to no IV access and that now, pt's IV looks slightly swollen. IV fluids stopped. Dr. Desai will see and re evaluate pt this am.
[2022-06-23 06:40] LABS: HEMATOCRIT 49.1 % (39.0-50.0); HEMOGLOBIN 15.6 g/dl (14.0-18.0); IMMATURE GRANULOCYTES 1.6 % (0.0-5.0); MEAN CELL VOLUME 96.5 fL CALC (80.0-100.0); MEAN CORPUSCULAR HGB 30.6 pG CALC (26.0-32.0); MEAN CORPUSCULAR HGB CONC 31.8 g/dL CAL (32.0-36.0); NEUT# 2.53 thou/uL (1.82-7.42); RED BLOOD COUNT 5.09 mill/uL (4.70-6.10); RED CELL DISTRI WIDTH 14.6 % (11.5-15.5)
[2022-06-23 06:57] LABS: ALBUMIN 3.8 g/dL (3.2-5.0); ALKALINE PHOSPHATASE 76 u/l (38-126); ANION GAP 14 (6-22 (CALC)); BILIRUBIN, TOTAL 0.3 mg/dL (0.0-1.4); BUN 19 mg/dL (8-23); BUN/CREATININE RATIO 22 (12-20 (CALC)); CARBON DIOXIDE 28 mmol/l (22-30); CHLORIDE 96 mmol/l (95-108); CREATININE 0.8 mg/dL (0.7-1.3); GFR FOR AFR.AMER. > 60 ML/MIN (>=60 (CALC)); GFR OTHER RACES > 60 ML/MIN (>=60 (CALC)); POTASSIUM 4.9 mmol/l (3.5-5.1); SGOT/AST 68 u/l (19-48); SODIUM 133 mmol/l (137-146); TOTAL PROTEIN 7.2 g/dL (6.3-8.2)
--- NOTE | 2022-06-23 07:27 | NUR ---
PT RESTING IN SEMO FOWLERS POSITION. PT A/OX3 ASSESSMENT COMPLETE. HEART RHYHTM NORMAL NO TELE. RESPIRATIONS SLIGHTLY LABORED. SOB ON 4L NC. BOWEL SOUNDS ACTIVE. IV SITE NOTED TO LFA. 20G. PT STATES IRRIATION WHEN FLUSHED NO REDNESS NOTED. Abhishek MARTINI TO REEVALUATE. PT DENIES NEW IV. ALL SAFETY PRECAUTIONS IN PLACE WITH CALL LIGHT INREACH.
[2022-06-23 07:28] VITALS: BP 111/45
--- NOTE | 2022-06-23 12:57 | NUR ---
NEW IV IN RAC 20G. CTA TO BE ORDERED PER PROVIDER ORDERS.
--- NOTE | 2022-06-23 16:14 | NUR ---
PT DENIES ADDITIONAL NEEDS AT THE TIME.
[2022-06-23 17:33] VITALS: BP 115/55
--- NOTE | 2022-06-23 19:00 | NUR ---
Shift report done. Pt received OOB in chair. O2 in place. No noted distress and no noted complaints. Will monitor.
[2022-06-23 20:23] VITALS: BP 111/57
[2022-06-23] MEDS ORDERED: ALPRAZOLAM0.5 MG PO (21:33)
--- NOTE | 2022-06-24 02:07 | NUR ---
Pt has been OOB in chair all night per request. States he breathes better sitting up. Monitored closely.
--- NOTE | 2022-06-24 03:27 | NUR ---
IVFs not infusing as patient prefers not to have same. Will attempt to start again.
[2022-06-24 04:03] VITALS: BP 117/58
[2022-06-24 06:40] VITALS: BP 106/53
[2022-06-24 07:26] LABS: HEMATOCRIT 48.3 % (39.0-50.0); HEMOGLOBIN 15.2 g/dl (14.0-18.0); IMMATURE GRANULOCYTES 1.1 % (0.0-5.0); MEAN CORPUSCULAR HGB 30.5 pG CALC (26.0-32.0); MEAN CORPUSCULAR HGB CONC 31.5 g/dL CAL (32.0-36.0); NEUT# 4.97 thou/uL (1.82-7.42); RED BLOOD COUNT 4.98 mill/uL (4.70-6.10); RED CELL DISTRI WIDTH 14.3 % (11.5-15.5)
[2022-06-24 07:31] LABS: ANION GAP 13 (6-22 (CALC)); BUN 25 mg/dL (8-23); BUN/CREATININE RATIO 30 (12-20 (CALC)); CARBON DIOXIDE 30 mmol/l (22-30); CHLORIDE 98 mmol/l (95-108); CREATININE 0.9 mg/dL (0.7-1.3); GFR FOR AFR.AMER. > 60 ML/MIN (>=60 (CALC)); GFR OTHER RACES > 60 ML/MIN (>=60 (CALC)); MAGNESIUM 2.2 mg/dL (1.6-2.3); POTASSIUM 4.8 mmol/l (3.5-5.1); SODIUM 136 mmol/l (137-146)
--- NOTE | 2022-06-24 07:43 | NUR ---
preliminary blood culture shows gram positive cocci in 2/4, same set. reported to dr brewer. no new orders, will fu with finals
--- NOTE | 2022-06-24 08:10 | NUR ---
RECIEVED REPORT. PT SITTING UP IN RECYLINER A/OX3. RESPIRATIONS EVEN AND UNLABORED ON 3.5L NC. LUNG SOUNDS DIMINISHED. BOWEL SOUNDS ACTIVE. #20G LAC INFUSING WITH IVF PER ORDER. SKIN INTACT. SCHEDULED MEDS ADMINISTERED AT THIS TIME. PT TOLERATED WELL. PT DENIES OF ANY NEEDS AT THIS TIME. ISOLATION PRECAUTIONS. PT ORIENTED TO ROOM AND CALL LIGHT. SAFTEY PRECAUTIONS ARE IN PLACE WITH CALL LIGHT IN REACH.
--- NOTE | 2022-06-24 10:16 | NUR ---
RT AT BEDSIDE FOR NEB TX
[2022-06-24] MEDS ORDERED: TAM75CAP PO (11:07)
[2022-06-24] MEDS ORDERED: PREDNISONE10 MG PO (11:09)
[2022-06-24] MEDS ORDERED: VIBRAMYCIN100 M2 PO (11:09)
--- NOTE | 2022-06-24 11:28 | NUR ---
PT SITTING IN RECYLINER. RESPIRATIONS EVEN AND UNLABORED ON 3.5L NC. TELE MONITORING IN PLACE. IV SITE PATENT. PT INFORMED OF DC, VERBALIZED UNDERSTANDING. ALL SAFTEY PRECAUTIONS ARE IN PLACE WITH CALL LIGHT IN REACH. ISOLATION PRECAUTIONS
--- NOTE | 2022-06-24 13:15 | NUR ---
PT EDUCATED ON DC INSTRUCTIONS AND NEW MEDICAITONS. PT VERBLAIZED UNDERSTANDING. IV REMOVED WTIH CATH INTACT. FAMILY CONTACTED
--- NOTE | 2022-06-24 14:24 | NUR ---
Discharge instructions given. Patient verbalizes understanding of same. Discharged in stable condition via Wheelchair to Home with staff. All belongings sent with pt. PT DC HOME WITH [facility] IN STABLE CONDITION WITH HOME O2
== END 2022-06-24 14:24 | disposition home health service (06) ==
LOC: ED 18:18 → ED-I 21:10 → ED 21:26 → MS2 21:26
PROVIDERS: Family Medicine; ADMIT Internal Medicine; ATTEND Internal Medicine
DX: J43.9 Emphysema, unspecified (principal); J10.1 Influenza due to other identified influenza virus with other respiratory manifestations; J96.21 Acute and chronic respiratory failure with hypoxia; I10 Essential (primary) hypertension; E11.51 Type 2 diabetes mellitus with diabetic peripheral angiopathy without gangrene; F41.1 Generalized anxiety disorder; F32.A Depression, unspecified; R60.0 Localized edema; F17.200 Nicotine dependence, unspecified, uncomplicated; T50.916A Underdosing of multiple unspecified drugs, medicaments and biological substances, initial encounter; Z91.128 Patient's intentional underdosing of medication regimen for other reason; Z99.81 Dependence on supplemental oxygen; Z20.822 Contact with and (suspected) exposure to COVID-19
CPT/HCPCS: J1650

== ENCOUNTER 2022-06-26 09:35 | Inpatient (IN) | payer MEDICARE ==
[2022-06-26] VITALS (11 sets, daily range): BP systolic 138–167; BP diastolic 64–81
[~2022-06-26] VITALS: Ht 172.7 cm; Wt 109.0 kg
[~2022-06-26 09:35] MED LIST changes: +ALPRAZOLAM0.5 MG PO; +TAM75CAP PO; +VIBRAMYCIN100 M2 PO
[2022-06-26 10:21] LABS: HEMATOCRIT 53.6 % (39.0-50.0); HEMOGLOBIN 16.8 g/dl (14.0-18.0); MEAN CELL VOLUME 97.3 fL CALC (80.0-100.0); MEAN CORPUSCULAR HGB 30.5 pG CALC (26.0-32.0); MEAN CORPUSCULAR HGB CONC 31.3 g/dL CAL (32.0-36.0); PLATELET COUNT 172 thou/uL (130-400); RED BLOOD COUNT 5.51 mill/uL (4.70-6.10); RED CELL DISTRI WIDTH 14.5 % (11.5-15.5)
[2022-06-26 10:35] LABS: ALKALINE PHOSPHATASE 76 u/l (38-126); ANION GAP 13 (6-22 (CALC)); BUN 25 mg/dL (8-23); BUN/CREATININE RATIO 27 (12-20 (CALC)); CARBON DIOXIDE 36 mmol/l (22-30); CHLORIDE 96 mmol/l (95-108); CREATININE 0.9 mg/dL (0.7-1.3); GFR FOR AFR.AMER. > 60 ML/MIN (>=60 (CALC)); GFR OTHER RACES > 60 ML/MIN (>=60 (CALC)); POTASSIUM 4.3 mmol/l (3.5-5.1); SGOT/AST 93 u/l (19-48); SODIUM 141 mmol/l (137-146); TOTAL PROTEIN 7.4 g/dL (6.3-8.2)
[2022-06-26 10:36] LABS: BILIRUBIN, TOTAL 0.6 mg/dL (0.0-1.4)
[2022-06-26 10:47] LABS: MANUAL DIFFERENTIAL YES
[2022-06-26 10:54] LABS: BAND 0 % (0-8); PLATELET ESTIMATE NORMAL
[2022-06-26 16:55] LABS: MAGNESIUM 2.4 mg/dL (1.6-2.3)
[2022-06-27] VITALS (31 sets, daily range): BP systolic 106–179; BP diastolic 47–86
[2022-06-27 06:22] LABS: HEMATOCRIT 48.2 % (39.0-50.0); HEMOGLOBIN 15.3 g/dl (14.0-18.0); IMMATURE GRANULOCYTES 2.1 % (0.0-5.0); MEAN CORPUSCULAR HGB 30.5 pG CALC (26.0-32.0); MEAN CORPUSCULAR HGB CONC 31.7 g/dL CAL (32.0-36.0); NEUT# 4.93 thou/uL (1.82-7.42); RED BLOOD COUNT 5.02 mill/uL (4.70-6.10); RED CELL DISTRI WIDTH 14.1 % (11.5-15.5)
[2022-06-27 06:35] LABS: ANION GAP 11 (6-22 (CALC)); BUN 23 mg/dL (8-23); BUN/CREATININE RATIO 31 (12-20 (CALC)); CARBON DIOXIDE 34 mmol/l (22-30); CHLORIDE 96 mmol/l (95-108); CREATININE 0.7 mg/dL (0.7-1.3); GFR FOR AFR.AMER. > 60 ML/MIN (>=60 (CALC)); GFR OTHER RACES > 60 ML/MIN (>=60 (CALC)); MAGNESIUM 2.5 mg/dL (1.6-2.3); POTASSIUM 3.9 mmol/l (3.5-5.1); SODIUM 136 mmol/l (137-146)
[2022-06-28] VITALS (43 sets, daily range): BP systolic 98–177; BP diastolic 58–97
[2022-06-28 05:17] LABS: HEMATOCRIT 47.8 % (39.0-50.0); HEMOGLOBIN 15.2 g/dl (14.0-18.0); IMMATURE GRANULOCYTES 2.2 % (0.0-5.0); MEAN CELL VOLUME 95.8 fL CALC (80.0-100.0); MEAN CORPUSCULAR HGB 30.5 pG CALC (26.0-32.0); MEAN CORPUSCULAR HGB CONC 31.8 g/dL CAL (32.0-36.0); NEUT# 7.25 thou/uL (1.82-7.42); RED BLOOD COUNT 4.99 mill/uL (4.70-6.10); RED CELL DISTRI WIDTH 14.1 % (11.5-15.5)
[2022-06-28 05:31] LABS: ANION GAP 12 (6-22 (CALC)); BUN 25 mg/dL (8-23); BUN/CREATININE RATIO 32 (12-20 (CALC)); CARBON DIOXIDE 30 mmol/l (22-30); CHLORIDE 99 mmol/l (95-108); CREATININE 0.8 mg/dL (0.7-1.3); GFR FOR AFR.AMER. > 60 ML/MIN (>=60 (CALC)); GFR OTHER RACES > 60 ML/MIN (>=60 (CALC)); MAGNESIUM 2.4 mg/dL (1.6-2.3); POTASSIUM 4.5 mmol/l (3.5-5.1); SODIUM 136 mmol/l (137-146)
[2022-06-29] VITALS (49 sets, daily range): BP systolic 121–163; BP diastolic 60–102
[2022-06-29 05:37] LABS: HEMATOCRIT 47.7 % (39.0-50.0); HEMOGLOBIN 15.3 g/dl (14.0-18.0); MEAN CELL VOLUME 95.8 fL CALC (80.0-100.0); MEAN CORPUSCULAR HGB 30.7 pG CALC (26.0-32.0); MEAN CORPUSCULAR HGB CONC 32.1 g/dL CAL (32.0-36.0); RED BLOOD COUNT 4.98 mill/uL (4.70-6.10); RED CELL DISTRI WIDTH 13.9 % (11.5-15.5)
[2022-06-29 05:43] LABS: ANION GAP 11 (6-22 (CALC)); BUN 25 mg/dL (8-23); BUN/CREATININE RATIO 31 (12-20 (CALC)); CARBON DIOXIDE 29 mmol/l (22-30); CHLORIDE 98 mmol/l (95-108); CREATININE 0.8 mg/dL (0.7-1.3); GFR FOR AFR.AMER. > 60 ML/MIN (>=60 (CALC)); GFR OTHER RACES > 60 ML/MIN (>=60 (CALC)); MAGNESIUM 2.3 mg/dL (1.6-2.3); POTASSIUM 4.6 mmol/l (3.5-5.1); SODIUM 134 mmol/l (137-146)
[2022-06-30] VITALS (47 sets, daily range): BP systolic 115–171; BP diastolic 56–99
[2022-06-30 05:56] LABS: HEMATOCRIT 47.7 % (39.0-50.0); HEMOGLOBIN 15.1 g/dl (14.0-18.0); MEAN CELL VOLUME 95.8 fL CALC (80.0-100.0); MEAN CORPUSCULAR HGB 30.3 pG CALC (26.0-32.0); MEAN CORPUSCULAR HGB CONC 31.7 g/dL CAL (32.0-36.0); NEUT# 9.01 thou/uL (1.82-7.42); RED BLOOD COUNT 4.98 mill/uL (4.70-6.10); RED CELL DISTRI WIDTH 13.9 % (11.5-15.5)
[2022-06-30 06:19] LABS: ANION GAP 15 (6-22 (CALC)); BUN 23 mg/dL (8-23); BUN/CREATININE RATIO 26 (12-20 (CALC)); CARBON DIOXIDE 26 mmol/l (22-30); CHLORIDE 97 mmol/l (95-108); CREATININE 0.9 mg/dL (0.7-1.3); GFR FOR AFR.AMER. > 60 ML/MIN (>=60 (CALC)); GFR OTHER RACES > 60 ML/MIN (>=60 (CALC)); POTASSIUM 5.1 mmol/l (3.5-5.1); SODIUM 133 mmol/l (137-146)
[2022-07-01] VITALS (21 sets, daily range): BP systolic 101–175; BP diastolic 59–90
[2022-07-01 05:52] LABS: HEMATOCRIT 47.3 % (39.0-50.0); HEMOGLOBIN 15.2 g/dl (14.0-18.0); IMMATURE GRANULOCYTES 4.2 % (0.0-5.0); MEAN CELL VOLUME 94.6 fL CALC (80.0-100.0); MEAN CORPUSCULAR HGB 30.4 pG CALC (26.0-32.0); MEAN CORPUSCULAR HGB CONC 32.1 g/dL CAL (32.0-36.0); NEUT# 8.58 thou/uL (1.82-7.42); RED CELL DISTRI WIDTH 13.8 % (11.5-15.5)
[2022-07-01 06:16] LABS: ANION GAP 14 (6-22 (CALC)); BUN 20 mg/dL (8-23); BUN/CREATININE RATIO 27 (12-20 (CALC)); CARBON DIOXIDE 26 mmol/l (22-30); CHLORIDE 97 mmol/l (95-108); CREATININE 0.7 mg/dL (0.7-1.3); GFR FOR AFR.AMER. > 60 ML/MIN (>=60 (CALC)); GFR OTHER RACES > 60 ML/MIN (>=60 (CALC)); POTASSIUM 4.9 mmol/l (3.5-5.1); SODIUM 131 mmol/l (137-146)
[2022-07-02] VITALS (7 sets, daily range): BP systolic 129–165; BP diastolic 52–85
[2022-07-03 05:31] VITALS: BP 141/68
[2022-07-03 08:13] VITALS: BP 137/77
[2022-07-03 09:24] VITALS: BP 137/77
[2022-07-03] MEDS ORDERED: ALPRAZOLAM0.5 MG PO (12:40)
== END 2022-07-03 15:50 | disposition home health service (06) | DRG 190 ==
LOC: ED 09:35 → ED-I 11:25 → ED 12:21 → MS2 12:22 → ICU 06-27 11:11 → MS2 07-01 10:07
PROVIDERS: Emergency Medicine; Internal Medicine; Nurse Practitioner; ADMIT Internal Medicine; ATTEND Internal Medicine
PROC: 5A09357 Assistance with Respiratory Ventilation, Less than 24 Consecutive Hours, Continuous Positive Airway Pressure (ICD-10-PCS; principal; 2022-06-27)
DX: J43.9 Emphysema, unspecified (principal); J96.21 Acute and chronic respiratory failure with hypoxia; J10.1 Influenza due to other identified influenza virus with other respiratory manifestations; I10 Essential (primary) hypertension; E11.51 Type 2 diabetes mellitus with diabetic peripheral angiopathy without gangrene; G47.30 Sleep apnea, unspecified; F41.9 Anxiety disorder, unspecified; F32.A Depression, unspecified; N40.0 Benign prostatic hyperplasia without lower urinary tract symptoms; F17.200 Nicotine dependence, unspecified, uncomplicated; Z99.81 Dependence on supplemental oxygen; Z20.822 Contact with and (suspected) exposure to COVID-19; R06.02 Shortness of breath; F41.1 Generalized anxiety disorder; R60.0 Localized edema; T50.916A Underdosing of multiple unspecified drugs, medicaments and biological substances, initial encounter; Z91.128 Patient's intentional underdosing of medication regimen for other reason
CPT/HCPCS: G0378; J1650; S0164

== ENCOUNTER 2024-03-20 15:50 | Emergency (ER) | payer MEDICARE ==
[2024-03-20] VITALS (10 sets, daily range): BP systolic 135–191; BP diastolic 78–107
[~2024-03-20] VITALS: Ht 172.7 cm; Wt 113.4 kg
[2024-03-20] MEDS ORDERED: diazePAM 10 MG/2 ML VIAL IV ONE (16:25)
[2024-03-20] MEDS ORDERED: TAMSULOSIN HCL 0.4 MG CAP PO ONE (16:25)
[2024-03-20 16:47] LABS: BASO% 0.4 % (0-3); EOS% 1.8 % (0-8); HEMATOCRIT 53.4 % (39.0-50.0); HEMOGLOBIN 17.1 g/dl (14.0-18.0); IMMATURE GRANULOCYTES 0.5 % (0.0-5.0); LYMPH% 14.3 % (15-41); MEAN CELL VOLUME 93.5 fL CALC (80.0-100.0); MEAN CORPUSCULAR HGB 29.9 pG CALC (26.0-32.0); MONO% 7.9 % (2-13); NEUT# 10.23 thou/uL (1.82-7.42); NEUT% 75.1 % (42-76); RED BLOOD COUNT 5.71 mill/uL (4.70-6.10); RED CELL DISTRI WIDTH 14.1 % (11.5-15.5)
[2024-03-20 16:58] LABS: ALBUMIN 4.1 g/dL (3.2-5.0); BILIRUBIN, TOTAL 0.4 mg/dL (0.2-1.3); CREATININE 0.9 mg/dL (0.7-1.3); POTASSIUM 4.7 mmol/l (3.5-5.1); TOTAL PROTEIN 7.4 g/dL (6.3-8.2)
[2024-03-20] MEDS ORDERED: MORPHINE SULFATE 4 MG/ML VIAL IV ONE (17:00)
[2024-03-20] MEDS ORDERED: PROMETHAZINE HCL 25 MG/ML AMP IV ONE (18:15)
[2024-03-20] MEDS ORDERED: HYDROmorphone HCL 2 MG/AMP IV ONE (18:15)
== END 2024-03-20 18:33 | disposition short-term general hospital (02) ==
LOC: ED 15:50
PROVIDERS: Emergency Medicine
PROC: 0TJDXZZ Inspection of Urethra, External Approach (ICD-10-PCS; principal; 2024-03-20)
DX: R33.9 Retention of urine, unspecified (principal); E11.9 Type 2 diabetes mellitus without complications; J43.9 Emphysema, unspecified; Z79.84 Long term (current) use of oral hypoglycemic drugs

== ENCOUNTER 2024-04-09 10:16 | Emergency (ER) | payer MEDICARE ==
[2024-04-09] VITALS (10 sets, daily range): BP systolic 135–182; BP diastolic 68–93
[~2024-04-09] VITALS: Ht 172.7 cm; Wt 110.0 kg
[2024-04-09] MEDS ORDERED: ONDANSETRON HCl 4 MG/2 ML SDV IV ONE (10:45)
[2024-04-09] MEDS ORDERED: MORPHINE SULFATE 4 MG/ML VIAL IV ONE ×2 (10:45→11:40)
[2024-04-09 10:57] LABS: BASO% 0.3 % (0-3); EOS% 0.9 % (0-8); HEMATOCRIT 48.6 % (39.0-50.0); HEMOGLOBIN 15.9 g/dl (14.0-18.0); IMMATURE GRANULOCYTES 0.5 % (0.0-5.0); LYMPH% 12.4 % (15-41); MEAN CELL VOLUME 92.4 fL CALC (80.0-100.0); MEAN CORPUSCULAR HGB 30.2 pG CALC (26.0-32.0); MEAN CORPUSCULAR HGB CONC 32.7 g/dL CAL (32.0-36.0); MONO% 7.1 % (2-13); NEUT# 11.86 thou/uL (1.82-7.42); NEUT% 78.8 % (42-76); RED BLOOD COUNT 5.26 mill/uL (4.70-6.10); RED CELL DISTRI WIDTH 14.1 % (11.5-15.5)
[2024-04-09 11:01] LABS: ALBUMIN 4.4 g/dL (3.2-5.0); CREATININE 0.8 mg/dL (0.7-1.3); POTASSIUM 4.7 mmol/l (3.5-5.1); TOTAL PROTEIN 7.9 g/dL (6.3-8.2); URINE BILIRUBIN - DIPSTICK Negative (NEGATIVE); URINE BLOOD DIPSTICK Large (NEGATIVE); URINE GLUCOSE - DIPSTICK Negative (NEGATIVE); URINE KETONE Negative (NEGATIVE); URINE LEUK ESTERASE Negative (NEGATIVE); URINE NITRITE - DIPSTICK Negative (Negative); URINE PROTEIN - DIPSTICK Negative (NEG-TRACE); URINE UROBILINOGEN - DIPSTICK 0.2 E.U./dL (0.2)
[2024-04-09 11:02] LABS: BILIRUBIN, TOTAL 0.7 mg/dL (0.2-1.3)
[2024-04-09 11:03] LABS: URINE COLOR Yellow
[2024-04-09] MEDS ORDERED: HYDROmorphone HCL 2 MG/AMP IV ONE (12:20)
== END 2024-04-09 12:41 | disposition short-term general hospital (02) ==
LOC: ED 10:16
PROVIDERS: Family Medicine
PROC: 0TJDXZZ Inspection of Urethra, External Approach (ICD-10-PCS; principal; 2024-04-09)
DX: N40.1 Benign prostatic hyperplasia with lower urinary tract symptoms (principal); R33.8 Other retention of urine; C61 Malignant neoplasm of prostate; E11.9 Type 2 diabetes mellitus without complications; J43.9 Emphysema, unspecified; Z79.84 Long term (current) use of oral hypoglycemic drugs

== ENCOUNTER 2024-06-22 09:44 | Emergency (ER) | payer MEDICARE ==
[~2024-06-22] VITALS: Ht 172.7 cm; Wt 103.0 kg
[2024-06-22] VITALS (7 sets, daily range): BP systolic 149–177; BP diastolic 75–97
[2024-06-22 10:27] LABS: BASO% 0.8 % (0-3); EOS% 3.7 % (0-8); HEMOGLOBIN 16.5 g/dl (14.0-18.0); IMMATURE GRANULOCYTES 0.4 % (0.0-5.0); LYMPH% 20.6 % (15-41); MEAN CELL VOLUME 91.9 fL CALC (80.0-100.0); MEAN CORPUSCULAR HGB 29.2 pG CALC (26.0-32.0); MEAN CORPUSCULAR HGB CONC 31.7 g/dL CAL (32.0-36.0); MONO% 8.3 % (2-13); NEUT# 8.57 thou/uL (1.82-7.42); NEUT% 66.2 % (42-76); RED BLOOD COUNT 5.66 mill/uL (4.70-6.10); RED CELL DISTRI WIDTH 13.8 % (11.5-15.5)
[2024-06-22] MEDS ORDERED: LIDOCAINE HCL 2 % JELLY UR ONE (10:30)
[2024-06-22 10:35] LABS: ALBUMIN 3.7 g/dL (3.2-5.0); BILIRUBIN, TOTAL 0.5 mg/dL (0.2-1.3); CREATININE 0.8 mg/dL (0.7-1.3); POTASSIUM 3.9 mmol/l (3.5-5.1); TOTAL PROTEIN 6.8 g/dL (6.3-8.2)
== END 2024-06-22 12:15 | disposition home or self-care (01) ==
LOC: ED 09:44
PROVIDERS: Family Medicine
PROC: 0T2BX0Z Change Drainage Device in Bladder, External Approach (ICD-10-PCS; principal; 2024-06-22)
DX: T83.091A Other mechanical complication of indwelling urethral catheter, initial encounter (principal); Y84.6 Urinary catheterization as the cause of abnormal reaction of the patient, or of later complication, without mention of misadventure at the time of the procedure; E11.9 Type 2 diabetes mellitus without complications; J43.9 Emphysema, unspecified; Z79.84 Long term (current) use of oral hypoglycemic drugs; Z96.0 Presence of urogenital implants; Z99.81 Dependence on supplemental oxygen

== ENCOUNTER 2024-08-17 20:16 | Emergency (ER) | payer MEDICARE ==
[~2024-08-17] VITALS: Ht 172.7 cm; Wt 97.0 kg
[2024-08-17 20:30] VITALS: BP 171/90
[2024-08-17] MEDS ORDERED: URISPAS100 MG PO (21:52)
== END 2024-08-17 22:00 | disposition home or self-care (01) ==
LOC: ED 20:16
PROC: 0T2BX0Z Change Drainage Device in Bladder, External Approach (ICD-10-PCS; principal; 2024-08-17)
DX: T83.091A Other mechanical complication of indwelling urethral catheter, initial encounter (principal); R33.9 Retention of urine, unspecified; E11.9 Type 2 diabetes mellitus without complications; J43.9 Emphysema, unspecified; Y84.6 Urinary catheterization as the cause of abnormal reaction of the patient, or of later complication, without mention of misadventure at the time of the procedure; F17.200 Nicotine dependence, unspecified, uncomplicated; Z85.46 Personal history of malignant neoplasm of prostate; Z79.84 Long term (current) use of oral hypoglycemic drugs